=== PATIENT | female | born 1935 | race Asian ===

== ENCOUNTER 2018-02-10 09:57 | Observation (INO) | payer MEDICARE, OTHER ==
[2018-02-10] MEDS ORDERED: NITROGLYCERIN (SL) 0.4 MG TAB SL ×2 (10:30→15:30)
[2018-02-10] MEDS: ASPIRIN 81 MG TAB PO (10:40)
[2018-02-10] MEDS: NITROGLYCERIN 2% 1 GM OINT PKT TD (10:40)
[2018-02-10 10:49] LABS: ADD MAN DIFF? NO
[2018-02-10 11:02] LABS: BASOPHILS % 0.2 % (0.0-2.0); EOSINOPHILS % 0.1 % (0.0-7.0); HEMATOCRIT 38.2 % (37.0-47.0); HEMOGLOBIN 12.4 g/dl (12.0-16.0); LYMPHOCYTES # 1.2 10^3/ul (0.8-2.9); LYMPHOCYTES % 14.1 % (15.0-51.0); MEAN CORPUSCULAR HEMOGLOBIN 28.1 pg (29.0-33.0); MEAN CORPUSCULAR HGB CONC 32.5 g/dl (32.0-37.0); MEAN CORPUSCULAR VOLUME 86.4 fl (82.0-101.0); MEAN PLATELET VOLUME 9.9 fl (7.4-10.4); MONOCYTE # 0.4 10^3/ul (0.3-0.9); MONOCYTES % 5.3 % (0.0-11.0); NEUTROPHIL # 6.5 10^3/ul (1.6-7.5); NEUTROPHILS % 79.9 % (39.0-77.0); PLATELET COUNT 237 10^3/UL (140-415); RED BLOOD COUNT 4.42 10^6/ul (4.20-5.40)
[2018-02-10 11:02] LABS: WHITE BLOOD COUNT 8.1 10^3/ul (4.8-10.8)
[2018-02-10 11:26] LABS: ANION GAP 16 (8-16); BLOOD UREA NITROGEN 19 mg/dl (7-20); CALCIUM 9.7 mg/dl (8.4-10.2); CARBON DIOXIDE 27 mmol/L (21-31); CHLORIDE 103 mmol/L (97-110); CREATININE 0.75 mg/dl (0.44-1.00); GLUCOSE 121 mg/dl (70-220); SODIUM 141 mmol/L (135-144)
[2018-02-10 11:40] LABS: TROPONIN-I < 0.012 ng/ml (0.000-0.120)
[2018-02-10] MEDS ORDERED: ACETAMINOPHEN 325 MG TAB PO ×2 (12:00→15:30)
[2018-02-10] MEDS ORDERED: ONDANSETRON 4 MG INJ IV (12:00)
[2018-02-10] MEDS: LOSARTAN 25 MG TAB PO (14:19)
[2018-02-10] MEDS: ATORVASTATIN 20 MG TAB PO (14:19)
[2018-02-10] MEDS: METOPROLOL 25 MG TAB PO ×2 (14:20→21:46)
[2018-02-10] MEDS ORDERED: NACL 0.9% 3 ML SYG IV (15:30)
[2018-02-10] MEDS ORDERED: GLUCAGON 1 MG INJ IM (16:30)
[2018-02-10] MEDS ORDERED: DEXTROSE 50% 50 ML SYRINGE IV ×2 (16:30)
[2018-02-10] MEDS ORDERED: GLUCOSE GEL 15 GRAM TUBE BUCCAL (16:30)
[2018-02-10] MEDS ORDERED: GLUCOSE GEL 15 GRAM TUBE PO ×2 (16:30)
[2018-02-10 16:52] LABS: CREATINE KINASE 140 IU/L (23-200)
[2018-02-10 17:06] LABS: CK INDEX 0.6; CK-MB 0.83 ng/ml (0.0-2.4)
[2018-02-10 17:11] LABS: TROPONIN-I < 0.012 ng/ml (0.000-0.120)
[2018-02-10 19:03] LABS: TROPONIN-I < 0.012 ng/ml (0.000-0.120)
[2018-02-10] MEDS: INSULIN ASPART [NOVOLOG] 3 ML PEN SC ×2 (19:15→21:00)
[2018-02-10] MEDS: HYDROCODONE/APAP (5/325) TAB PO (21:55)
[2018-02-10 22:33] LABS: CREATINE KINASE 131 IU/L (23-200)
[2018-02-10 22:44] LABS: CK INDEX 0.9; CK-MB 1.21 ng/ml (0.0-2.4); TROPONIN-I < 0.012 ng/ml (0.000-0.120)
[2018-02-10] MEDS ORDERED: NYSTATIN SUSP 5 ML CUP PO (23:00)
[2018-02-10] MEDS: NYSTATIN SUSP 5 ML CUP PO (23:19)
[2018-02-10] MEDS: ZOLPIDEM 5 MG TAB PO (23:19)
[2018-02-11 01:37] LABS: TROPONIN-I < 0.012 ng/ml (0.000-0.120)
[2018-02-11 05:41] LABS: ADD MAN DIFF? NO
[2018-02-11 05:42] LABS: BASOPHILS % 0.3 % (0.0-2.0); EOSINOPHILS % 0.7 % (0.0-7.0); HEMATOCRIT 35.1 % (37.0-47.0); HEMOGLOBIN 11.2 g/dl (12.0-16.0); LYMPHOCYTES # 1.7 10^3/ul (0.8-2.9); LYMPHOCYTES % 28.3 % (15.0-51.0); MEAN CORPUSCULAR HEMOGLOBIN 27.5 pg (29.0-33.0); MEAN CORPUSCULAR HGB CONC 31.9 g/dl (32.0-37.0); MEAN CORPUSCULAR VOLUME 86.2 fl (82.0-101.0); MEAN PLATELET VOLUME 10.1 fl (7.4-10.4); MONOCYTE # 0.4 10^3/ul (0.3-0.9); MONOCYTES % 7.2 % (0.0-11.0); NEUTROPHIL # 3.8 10^3/ul (1.6-7.5); NEUTROPHILS % 63.3 % (39.0-77.0); PLATELET COUNT 225 10^3/UL (140-415); RED BLOOD COUNT 4.07 10^6/ul (4.20-5.40); RED CELL DISTRIBUTION WIDTH 13.2 % (11.5-14.5)
[2018-02-11] MEDS: NYSTATIN SUSP 5 ML CUP PO (05:58)
[2018-02-11 06:01] LABS: HEMOGLOBIN A1C 8.4 % (0-5.9)
[2018-02-11 06:17] LABS: ALANINE AMINOTRANSFERASE 45 IU/L (13-69); ALBUMIN/GLOBULIN RATIO 1.48; ALKALINE PHOSPHATASE 54 IU/L (42-121); ANION GAP 12 (8-16); ASPARTATE AMINO TRANSFERASE 58 IU/L (15-46); BILIRUBIN,INDIRECT 0.7 mg/dl (0-1.1); BILIRUBIN,TOTAL 0.7 mg/dl (0.2-1.3); BLOOD UREA NITROGEN 31 mg/dl (7-20); CARBON DIOXIDE 26 mmol/L (21-31); CHLORIDE 106 mmol/L (97-110); CREATININE 0.67 mg/dl (0.44-1.00); GLUCOSE 150 mg/dl (70-220); POTASSIUM 5.1 mmol/L (3.5-5.1); SODIUM 139 mmol/L (135-144); TOTAL PROTEIN 6.7 g/dl (6.1-8.1)
[2018-02-11 06:22] LABS: CHOLESTEROL 104 mg/dl (100-200)
[2018-02-11 06:22] LABS: CHOL/HDL RATIO 2.3 RATIO; HDL CHOLESTEROL 44 mg/dl (33-92); LDL CHOLESTEROL,CALCULATED 33 mg/dl; MAGNESIUM 2.4 mg/dl (1.7-2.5); TRIGLYCERIDES 136 mg/dl (0-149)
[2018-02-11 06:22] LABS: PHOSPHORUS 4.2 mg/dl (2.5-4.9)
[2018-02-11 06:29] LABS: TROPONIN-I < 0.012 ng/ml (0.000-0.120)
[2018-02-11] MEDS: INSULIN ASPART [NOVOLOG] 3 ML PEN SC ×4 (08:07→20:37)
[2018-02-11] MEDS: ASPIRIN 81 MG TAB PO (08:25)
[2018-02-11] MEDS: ATORVASTATIN 20 MG TAB PO (08:26)
[2018-02-11] MEDS: METOPROLOL 25 MG TAB PO ×2 (08:26→20:31)
[2018-02-11] MEDS: LOSARTAN 25 MG TAB PO (08:27)
[2018-02-11] MEDS ORDERED: ASPIRIN 81 MG TAB PO (09:00)
[2018-02-11] MEDS: ONDANSETRON 4 MG INJ IV (11:33)
[2018-02-11] MEDS: SOD CHLORIDE 0.9% 1,000 ML IV (14:30)
[2018-02-11] MEDS: SUCRALFATE (100 MG/ML) 10ML CUP NGT ×2 (17:10→20:31)
[2018-02-11] MEDS: PANTOPRAZOLE (EC) 40 MG TAB PO (17:10)
[2018-02-11] MEDS: METOCLOPRAMIDE 10 MG INJ IV (17:11)
[2018-02-12] MEDS: METOCLOPRAMIDE 10 MG INJ IV ×3 (00:12→12:18)
[2018-02-12] MEDS: HYDROCODONE/APAP (5/325) TAB PO (01:08)
[2018-02-12] MEDS: PANTOPRAZOLE (EC) 40 MG TAB PO (05:33)
[2018-02-12] MEDS: SOD CHLORIDE 0.9% 1,000 ML IV (05:36)
[2018-02-12] MEDS: MECLIZINE 12.5 MG TAB PO ×2 (06:28→14:21)
[2018-02-12] MEDS: INSULIN ASPART [NOVOLOG] 3 ML PEN SC ×2 (08:40→12:19)
[2018-02-12] MEDS: ATORVASTATIN 20 MG TAB PO (08:53)
[2018-02-12] MEDS: LOSARTAN 25 MG TAB PO (08:53)
[2018-02-12] MEDS: SUCRALFATE (100 MG/ML) 10ML CUP NGT ×2 (08:53→13:31)
[2018-02-12] MEDS: METOPROLOL 25 MG TAB PO (08:54)
[2018-02-12] MEDS: ASPIRIN 81 MG TAB PO (08:54)
[2018-02-12] MEDS: ENOXAPARIN 40 MG/0.4 ML SYG SC (10:30)
[2018-02-12] MEDS: BISACODYL (EC) 5 MG TAB PO (15:21)
[2018-02-12] MEDS ORDERED: POLYETHYLENE GLYCOL 17 GM PACKET PO (21:00)
[2018-02-12] MEDS ORDERED: DOCUSATE SODIUM 100 MG CAP PO (21:00)
== END 2018-02-12 17:30 | disposition home or self-care (01) ==
LOC: PP2 02-11 18:34 → E/R 09:57 → 6WM 11:49
DX: R07.89 Other chest pain (principal); K21.9 Gastro-esophageal reflux disease without esophagitis; B37.0 Candidal stomatitis; I10 Essential (primary) hypertension; E11.9 Type 2 diabetes mellitus without complications; E78.5 Hyperlipidemia, unspecified; I25.10 Atherosclerotic heart disease of native coronary artery without angina pectoris; Z79.4 Long term (current) use of insulin
CPT/HCPCS: 36415; 71045; 80048; 80053; 80061; 82550; 82553; 82962; 83036; 83735; 84100; 84439; 84443; 84484; 85025; 93005; 93306; 99217; 99285-25; G0378

== ENCOUNTER 2018-03-03 16:22 | Inpatient (IN) | payer MEDICARE, OTHER ==
[2018-03-03] MEDS ORDERED: GLUCOSE GEL 15 GRAM TUBE PO ×2 (19:30)
[2018-03-03] MEDS ORDERED: GLUCAGON 1 MG INJ IM (19:30)
[2018-03-03] MEDS ORDERED: DEXTROSE 50% 50 ML SYRINGE IV ×2 (19:30)
[2018-03-03] MEDS ORDERED: GLUCOSE GEL 15 GRAM TUBE BUCCAL (19:30)
[2018-03-03] MEDS: SOD CHLORIDE 0.9% 1,000 ML IV (19:51)
[2018-03-03] MEDS: ISOSORBIDE DINITRATE 5 MG TAB PO (19:55)
[2018-03-03 20:26] LABS: ADD MAN DIFF? NO
[2018-03-03 20:29] LABS: WHITE BLOOD COUNT 7.4 10^3/ul (4.8-10.8)
[2018-03-03 20:29] LABS: BASOPHILS % 0.3 % (0.0-2.0); EOSINOPHILS % 0.4 % (0.0-7.0); HEMATOCRIT 33.3 % (37.0-47.0); HEMOGLOBIN 11.1 g/dl (12.0-16.0); LYMPHOCYTES # 1.7 10^3/ul (0.8-2.9); LYMPHOCYTES % 22.8 % (15.0-51.0); MEAN CORPUSCULAR HEMOGLOBIN 28.4 pg (29.0-33.0); MEAN CORPUSCULAR HGB CONC 33.3 g/dl (32.0-37.0); MEAN CORPUSCULAR VOLUME 85.2 fl (82.0-101.0); MEAN PLATELET VOLUME 9.8 fl (7.4-10.4); MONOCYTE # 0.5 10^3/ul (0.3-0.9); MONOCYTES % 6.1 % (0.0-11.0); NEUTROPHIL # 5.2 10^3/ul (1.6-7.5); NEUTROPHILS % 70.3 % (39.0-77.0); PLATELET COUNT 204 10^3/UL (140-415); RED BLOOD COUNT 3.91 10^6/ul (4.20-5.40); RED CELL DISTRIBUTION WIDTH 13.2 % (11.5-14.5)
[2018-03-03] MEDS: ZOLPIDEM 5 MG TAB PO (20:39)
[2018-03-03] MEDS: INSULIN ASPART [NOVOLOG] 3 ML PEN SC (20:43)
[2018-03-03 20:48] LABS: ALANINE AMINOTRANSFERASE 38 IU/L (13-69); ALBUMIN 3.6 g/dl (3.3-4.9); ALBUMIN/GLOBULIN RATIO 1.33; ALKALINE PHOSPHATASE 58 IU/L (42-121); AMYLASE 84 U/L (11-123); ANION GAP 13 (8-16); ASPARTATE AMINO TRANSFERASE 50 IU/L (15-46); BILIRUBIN,INDIRECT 0.5 mg/dl (0-1.1); BILIRUBIN,TOTAL 0.5 mg/dl (0.2-1.3); BLOOD UREA NITROGEN 13 mg/dl (7-20); CALCIUM 9.5 mg/dl (8.4-10.2); CARBON DIOXIDE 26 mmol/L (21-31); CHLORIDE 104 mmol/L (97-110); CHOLESTEROL 98 mg/dl (100-200); CREATININE 0.67 mg/dl (0.44-1.00); GLUCOSE 241 mg/dl (70-220); LIPASE 120 U/L (23-300); POTASSIUM 4.2 mmol/L (3.5-5.1); SODIUM 139 mmol/L (135-144); TOTAL PROTEIN 6.3 g/dl (6.1-8.1)
[2018-03-03 20:51] LABS: HEMOGLOBIN A1C 7.1 % (0-5.9)
[2018-03-03 21:00] LABS: CK-MB 1.55 ng/ml (0.0-2.4); TROPONIN-I < 0.012 ng/ml (0.000-0.120)
[2018-03-03] MEDS: IOHEXOL 14.3 MG(I)/ML (ADULT) BTL PO (21:30)
[2018-03-03 21:31] LABS: CARCINOEMBRYONIC ANTIGEN 0.6 ng/ml (0.0-5.0)
[2018-03-03] MEDS: INSULIN DETEMIR [LEVEMIR] (100 UNITS/ML) SYG SC (21:33)
[2018-03-03 21:35] LABS: CANCER ANTIGEN 19-9 3.8 U/ml (0.0-37.0)
[2018-03-03] MEDS: ATORVASTATIN 10 MG TAB PO (21:47)
[2018-03-03] MEDS: SENNA TAB PO (21:47)
[2018-03-04] MEDS: ACCU-CHEK XX (01:46)
[2018-03-04] MEDS: PANTOPRAZOLE 40 MG INJ IV (05:46)
[2018-03-04 07:34] LABS: ADD MAN DIFF? NO
[2018-03-04 07:43] LABS: WHITE BLOOD COUNT 6.4 10^3/ul (4.8-10.8)
[2018-03-04 07:43] LABS: BASOPHILS % 0.5 % (0.0-2.0); EOSINOPHILS # 0.1 10^3/ul (0.0-0.5); EOSINOPHILS % 0.8 % (0.0-7.0); HEMATOCRIT 32.1 % (37.0-47.0); HEMOGLOBIN 10.3 g/dl (12.0-16.0); LYMPHOCYTES # 1.2 10^3/ul (0.8-2.9); LYMPHOCYTES % 17.9 % (15.0-51.0); MEAN CORPUSCULAR HGB CONC 32.1 g/dl (32.0-37.0); MEAN CORPUSCULAR VOLUME 87.2 fl (82.0-101.0); MEAN PLATELET VOLUME 9.8 fl (7.4-10.4); MONOCYTE # 0.4 10^3/ul (0.3-0.9); MONOCYTES % 6.9 % (0.0-11.0); NEUTROPHIL # 4.7 10^3/ul (1.6-7.5); NEUTROPHILS % 73.7 % (39.0-77.0); PLATELET COUNT 194 10^3/UL (140-415); RED BLOOD COUNT 3.68 10^6/ul (4.20-5.40); RED CELL DISTRIBUTION WIDTH 13.2 % (11.5-14.5)
[2018-03-04] MEDS: INSULIN ASPART [NOVOLOG] 3 ML PEN SC ×4 (07:55→21:00)
[2018-03-04] MEDS: CREON (24K-76K-120K) 1 CAP PO ×3 (08:07→17:37)
[2018-03-04] MEDS: ESCITALOPRAM 10 MG TAB PO (08:07)
[2018-03-04] MEDS: MULTIVITAMINS THERAPEUTIC TAB PO (08:07)
[2018-03-04] MEDS: LOSARTAN 50 MG TAB PO (08:08)
[2018-03-04] MEDS: SENNA TAB PO ×2 (08:08→20:01)
[2018-03-04] MEDS: ISOSORBIDE DINITRATE 5 MG TAB PO (08:08)
[2018-03-04] MEDS: SOD CHLORIDE 0.9% 1,000 ML IV (08:10)
[2018-03-04 08:17] LABS: ANION GAP 10 (8-16); BLOOD UREA NITROGEN 18 mg/dl (7-20); CARBON DIOXIDE 27 mmol/L (21-31); CHLORIDE 110 mmol/L (97-110); CREATININE 0.65 mg/dl (0.44-1.00); POTASSIUM 4.2 mmol/L (3.5-5.1); SODIUM 143 mmol/L (135-144)
[2018-03-04 08:26] LABS: TROPONIN-I < 0.012 ng/ml (0.000-0.120)
[2018-03-04 08:32] LABS: GLUCOSE 48 mg/dl (70-220)
[2018-03-04 10:39] LABS: GLUCOSE 199 mg/dl (70-220)
[2018-03-04] MEDS: ATORVASTATIN 10 MG TAB PO (20:01)
[2018-03-04] MEDS: INSULIN DETEMIR [LEVEMIR] (100 UNITS/ML) SYG SC (20:08)
[2018-03-05] MEDS: SOD CHLORIDE 0.9% 1,000 ML IV (00:06)
[2018-03-05] MEDS: ACCU-CHEK XX (02:00)
[2018-03-05] MEDS: PANTOPRAZOLE 40 MG INJ IV ×2 (05:47→18:20)
[2018-03-05 07:27] LABS: LACTIC ACID 0.6 mmol/L (0.5-2.0)
[2018-03-05 07:41] LABS: AMMONIA < 9 umol/l (9-30)
[2018-03-05 07:50] LABS: B-TYPE NATRIURETIC PEPTIDE 462 PG/ML (0-450)
[2018-03-05] MEDS: INSULIN ASPART [NOVOLOG] 3 ML PEN SC ×4 (07:55→21:00)
[2018-03-05 08:09] LABS: ANION GAP 10 (8-16); BLOOD UREA NITROGEN 13 mg/dl (7-20); CALCIUM 9.1 mg/dl (8.4-10.2); CARBON DIOXIDE 25 mmol/L (21-31); CHLORIDE 109 mmol/L (97-110); CREATININE 0.64 mg/dl (0.44-1.00); POTASSIUM 3.9 mmol/L (3.5-5.1); SODIUM 140 mmol/L (135-144)
[2018-03-05 08:18] LABS: INR 0.93; PROTIME 12.6 Sec (11.9-14.9)
[2018-03-05] MEDS: MULTIVITAMINS THERAPEUTIC TAB PO (08:47)
[2018-03-05] MEDS: CREON (24K-76K-120K) 1 CAP PO ×3 (08:47→17:55)
[2018-03-05] MEDS: SENNA TAB PO ×2 (08:47→21:09)
[2018-03-05] MEDS: ESCITALOPRAM 10 MG TAB PO (08:48)
[2018-03-05] MEDS: LOSARTAN 50 MG TAB PO (08:48)
[2018-03-05] MEDS: THIAMINE 100 MG TAB PO (08:48)
[2018-03-05] MEDS: ISOSORBIDE DINITRATE 5 MG TAB PO (08:48)
[2018-03-05] MEDS: DONEPEZIL 5 MG TAB PO (08:49)
[2018-03-05 09:09] LABS: FOLATE 17.2 ng/ml (2.8-20.0)
[2018-03-05 09:47] LABS: GLUCOSE 45 mg/dl (70-220)
[2018-03-05 10:07] LABS: FREE T4 (FREE THYROXINE) 1.41 ng/dl (0.85-1.93)
[2018-03-05] MEDS: LACTULOSE 30ML CUP PO ×5 (12:00→22:30)
[2018-03-05] MEDS: DEXTROSE 5%-0.9% NACL 1,000 ML IV (14:30)
[2018-03-05] MEDS: AL HYDROX/MG HYDROX/SIMETH 30 ML CUP PO (18:16)
[2018-03-05] MEDS: MAGNESIUM CITRATE 300 ML BTL PO (18:21)
[2018-03-05] MEDS: INSULIN DETEMIR [LEVEMIR] (100 UNITS/ML) SYG SC (20:00)
[2018-03-05] MEDS: ATORVASTATIN 10 MG TAB PO (21:09)
[2018-03-05] MEDS: ZOLPIDEM 5 MG TAB PO (21:10)
[2018-03-05] MEDS: BISACODYL (EC) 5 MG TAB PO (23:00)
[2018-03-05] MEDS: LIDOCAINE/MYLANTA 40 ML BTL PO (23:07)
[2018-03-06] MEDS: ACCU-CHEK XX (02:00)
[2018-03-06] MEDS: DEXTROSE 5%-0.9% NACL 1,000 ML IV (06:26)
[2018-03-06] MEDS: PANTOPRAZOLE 40 MG INJ IV (06:26)
[2018-03-06] MEDS: NA PHOSPHATE/BIPHOS 133 ML ENEMA PR (06:26)
[2018-03-06 07:08] LABS: ANION GAP 11 (8-16); BLOOD UREA NITROGEN 11 mg/dl (7-20); CALCIUM 8.8 mg/dl (8.4-10.2); CARBON DIOXIDE 24 mmol/L (21-31); CHLORIDE 109 mmol/L (97-110); GLUCOSE 151 mg/dl (70-220); POTASSIUM 3.6 mmol/L (3.5-5.1); SODIUM 140 mmol/L (135-144)
[2018-03-06] MEDS: CREON (24K-76K-120K) 1 CAP PO ×3 (07:55→17:24)
[2018-03-06] MEDS: INSULIN ASPART [NOVOLOG] 3 ML PEN SC ×4 (07:55→21:00)
[2018-03-06] MEDS: LOSARTAN 50 MG TAB PO ×2 (08:06→16:33)
[2018-03-06] MEDS: ISOSORBIDE DINITRATE 5 MG TAB PO ×2 (08:06→16:33)
[2018-03-06] MEDS: ESCITALOPRAM 10 MG TAB PO (08:06)
[2018-03-06] MEDS: DONEPEZIL 5 MG TAB PO (08:06)
[2018-03-06] MEDS: SENNA TAB PO ×2 (08:07→19:47)
[2018-03-06] MEDS: THIAMINE 100 MG TAB PO (08:07)
[2018-03-06] MEDS: MULTIVITAMINS THERAPEUTIC TAB PO (08:07)
[2018-03-06] MEDS ORDERED: ONDANSETRON 4 MG INJ IV (14:30)
[2018-03-06] MEDS ORDERED: PROPOFOL 40 ML (14:53)
[2018-03-06] MEDS ORDERED: LIDOCAINE 2% (SDV) 5 ML INJ (14:53)
[2018-03-06] MEDS ORDERED: HYDROCORTISONE 25 MG SUPP PR (16:00)
[2018-03-06] MEDS: AL HYDROX/MG HYDROX/SIMETH 30 ML CUP PO (16:41)
[2018-03-06] MEDS: ZOLPIDEM 5 MG TAB PO (19:47)
[2018-03-06] MEDS: ATORVASTATIN 10 MG TAB PO (19:47)
[2018-03-06] MEDS: INSULIN DETEMIR [LEVEMIR] (100 UNITS/ML) SYG SC (20:16)
[2018-03-07] MEDS: ACCU-CHEK XX (02:00)
[2018-03-07] MEDS: DEXTROSE 5%-0.9% NACL 1,000 ML IV ×3 (04:54→23:42)
[2018-03-07] MEDS: PANTOPRAZOLE (EC) 40 MG TAB PO (06:20)
[2018-03-07] MEDS: INSULIN ASPART [NOVOLOG] 3 ML PEN SC ×4 (07:55→21:00)
[2018-03-07] MEDS: ESCITALOPRAM 10 MG TAB PO (10:08)
[2018-03-07] MEDS: SENNA TAB PO ×2 (10:08→23:38)
[2018-03-07] MEDS: CREON (24K-76K-120K) 1 CAP PO ×3 (10:08→18:10)
[2018-03-07] MEDS: THIAMINE 100 MG TAB PO (10:08)
[2018-03-07] MEDS: MULTIVITAMINS THERAPEUTIC TAB PO (10:08)
[2018-03-07] MEDS: DONEPEZIL 5 MG TAB PO (10:08)
[2018-03-07] MEDS: ISOSORBIDE DINITRATE 5 MG TAB PO (10:09)
[2018-03-07] MEDS: LOSARTAN 50 MG TAB PO (10:09)
[2018-03-07] MEDS: MEMANTINE 10 MG TAB PO (18:10)
[2018-03-07] MEDS: hydrALAzine 20 MG INJ IV (19:52)
[2018-03-07 20:24] LABS: TROPONIN-I < 0.012 ng/ml (0.000-0.120)
[2018-03-07] MEDS: QUETIAPINE 25 MG TAB PO (21:00)
[2018-03-07] MEDS: LORAZEPAM 2 MG INJ IV (21:02)
[2018-03-07] MEDS: INSULIN DETEMIR [LEVEMIR] (100 UNITS/ML) SYG SC (21:25)
[2018-03-08] MEDS: DIPHENHYDRAMINE 50 MG CAP PO ×2 (00:19→21:42)
[2018-03-08] MEDS: ACCU-CHEK XX (02:00)
[2018-03-08] MEDS: PANTOPRAZOLE (EC) 40 MG TAB PO (05:48)
[2018-03-08] MEDS: CREON (24K-76K-120K) 1 CAP PO ×3 (07:55→18:35)
[2018-03-08] MEDS: INSULIN ASPART [NOVOLOG] 3 ML PEN SC ×4 (07:55→21:41)
[2018-03-08] MEDS ORDERED: SIMETH/SOD BICARB/CIT AC PKT (E-Z- GAS II) PO (08:47)
[2018-03-08] MEDS ORDERED: BARIUM SULFATE 135 ML (E-Z HD) PO (08:47)
[2018-03-08] MEDS: THIAMINE 100 MG TAB PO (09:00)
[2018-03-08] MEDS: SENNA TAB PO ×2 (09:00→21:30)
[2018-03-08] MEDS: LOSARTAN 50 MG TAB PO (09:00)
[2018-03-08] MEDS: ISOSORBIDE DINITRATE 5 MG TAB PO (09:00)
[2018-03-08] MEDS: MULTIVITAMINS THERAPEUTIC TAB PO (09:00)
[2018-03-08] MEDS: MEMANTINE 10 MG TAB PO (09:00)
[2018-03-08] MEDS: DONEPEZIL 5 MG TAB PO (09:00)
[2018-03-08 09:05] LABS: ADD MAN DIFF? NO
[2018-03-08 09:19] LABS: BASOPHILS % 0.4 % (0.0-2.0); EOSINOPHILS % 0.4 % (0.0-7.0); HEMATOCRIT 30.2 % (37.0-47.0); LYMPHOCYTES # 1.5 10^3/ul (0.8-2.9); LYMPHOCYTES % 28.5 % (15.0-51.0); MEAN CORPUSCULAR HEMOGLOBIN 28.1 pg (29.0-33.0); MEAN CORPUSCULAR HGB CONC 33.1 g/dl (32.0-37.0); MEAN CORPUSCULAR VOLUME 84.8 fl (82.0-101.0); MEAN PLATELET VOLUME 9.7 fl (7.4-10.4); MONOCYTE # 0.4 10^3/ul (0.3-0.9); MONOCYTES % 7.3 % (0.0-11.0); NEUTROPHIL # 3.3 10^3/ul (1.6-7.5); NEUTROPHILS % 63.2 % (39.0-77.0); PLATELET COUNT 187 10^3/UL (140-415); RED BLOOD COUNT 3.56 10^6/ul (4.20-5.40); RED CELL DISTRIBUTION WIDTH 13.2 % (11.5-14.5)
[2018-03-08 09:19] LABS: WHITE BLOOD COUNT 5.2 10^3/ul (4.8-10.8)
[2018-03-08 09:51] LABS: ANION GAP 7 (8-16); BLOOD UREA NITROGEN 6 mg/dl (7-20); CALCIUM 8.7 mg/dl (8.4-10.2); CARBON DIOXIDE 25 mmol/L (21-31); CHLORIDE 112 mmol/L (97-110); CREATININE 0.59 mg/dl (0.44-1.00); GLUCOSE 96 mg/dl (70-220); POTASSIUM 3.4 mmol/L (3.5-5.1); SODIUM 141 mmol/L (135-144)
[2018-03-08 09:54] LABS: TROPONIN-I < 0.012 ng/ml (0.000-0.120)
[2018-03-08] MEDS: DEXTROSE 5%-0.9% NACL 1,000 ML IV (12:59)
[2018-03-08] MEDS: LORAZEPAM 0.5 MG TAB PO (18:36)
[2018-03-08] MEDS: POTASSIUM CHLORIDE (SR) 20 MEQ TAB PO (18:36)
[2018-03-08] MEDS: INSULIN DETEMIR [LEVEMIR] (100 UNITS/ML) SYG SC (21:42)
[2018-03-09] MEDS: ACCU-CHEK XX (02:00)
[2018-03-09] MEDS: PANTOPRAZOLE (EC) 40 MG TAB PO (06:02)
[2018-03-09] MEDS: DEXTROSE 5%-0.9% NACL 1,000 ML IV (06:02)
[2018-03-09] MEDS: CREON (24K-76K-120K) 1 CAP PO ×2 (08:09→12:20)
[2018-03-09] MEDS: SENNA TAB PO (08:09)
[2018-03-09] MEDS: DONEPEZIL 5 MG TAB PO (08:09)
[2018-03-09] MEDS: MULTIVITAMINS THERAPEUTIC TAB PO (08:10)
[2018-03-09] MEDS: ISOSORBIDE DINITRATE 5 MG TAB PO (08:10)
[2018-03-09] MEDS: THIAMINE 100 MG TAB PO (08:10)
[2018-03-09] MEDS: MEMANTINE 10 MG TAB PO (08:10)
[2018-03-09] MEDS: BUSPIRONE 10 MG TAB PO (08:11)
[2018-03-09] MEDS: LOSARTAN 50 MG TAB PO (08:11)
[2018-03-09] MEDS: INSULIN ASPART [NOVOLOG] 3 ML PEN SC ×2 (08:22→12:21)
[2018-03-09] MEDS ORDERED: BUSPIRONE 5 MG TAB PO (09:00)
== END 2018-03-09 14:24 | disposition home or self-care (01) | DRG 394 ==
LOC: TEL 16:22
PROC: 0DB58ZX Excision of Esophagus, Via Natural or Artificial Opening Endoscopic, Diagnostic (ICD-10-PCS; principal; 2018-03-06 14:30)
PROC: 0DB68ZX Excision of Stomach, Via Natural or Artificial Opening Endoscopic, Diagnostic (ICD-10-PCS; 2018-03-06 14:30)
PROC: 0DBP8ZX Excision of Rectum, Via Natural or Artificial Opening Endoscopic, Diagnostic (ICD-10-PCS; 2018-03-06 14:30)
DX: K62.1 Rectal polyp (principal); F05 Delirium due to known physiological condition; Q39.6 Congenital diverticulum of esophagus; R10.9 Unspecified abdominal pain; I10 Essential (primary) hypertension; E11.9 Type 2 diabetes mellitus without complications; R13.10 Dysphagia, unspecified; R63.4 Abnormal weight loss; Z68.20 Body mass index [BMI] 20.0-20.9, adult; K59.00 Constipation, unspecified; E78.5 Hyperlipidemia, unspecified; N20.0 Calculus of kidney; I71.4 Abdominal aortic aneurysm, without rupture; R91.1 Solitary pulmonary nodule; K64.9 Unspecified hemorrhoids; K20.9 Esophagitis, unspecified; K64.8 Other hemorrhoids; K21.9 Gastro-esophageal reflux disease without esophagitis; F32.9 Major depressive disorder, single episode, unspecified; F03.90 Unspecified dementia, unspecified severity, without behavioral disturbance, psychotic disturbance, mood disturbance, and anxiety; F41.9 Anxiety disorder, unspecified; Z51.5 Encounter for palliative care; R07.89 Other chest pain
CPT/HCPCS: 70450; 71045; 71250; 74176; 74240; 76775; 80048; 80053; 82140; 82150; 82378; 82465; 82553; 82607; 82746; 82947; 82962; 83036; 83605; 83690; 83880; 84439; 84443; 84484; 85025; 85610; 86301; 88305; 88312; 88313; 93005; 99217; G0378